=== PATIENT | male | born 1960 | race Caucasian/White ===

== ENCOUNTER 2024-06-10 05:31 | Day surgery (SDC) | payer BC ==
[2024-06-10] MEDS: NA CHLORIDE 0.9% 1,000 ML ONE ×2 (06:20→10:57)
[2024-06-10 06:53] LABS: Absolute Eosinophils 0.2 K/uL (0-0.5); Absolute Lymphocytes (CBC) 1.5 K/uL (0.7-4.9); Absolute Monocytes 0.6 K/uL (0.1-1.3); Absolute Neutrophil 5.3 K/uL (1.8-8.0); Basophils % 0.6 % (0-1.3); Eosinophils % 3.2 % (0-4.4); Hematocrit 36.7 % (39.6-49.0); Hemoglobin 12.8 g/dL (13.6-17.9); Lymphocytes % 19.4 % (15.3-44.8); MCH 29.7 pg (27.0-35.0); MCV 84.8 fL (80-100); MPV 8.6 fL (7.6-11.3); Monocytes % 8.4 % (3.3-12.3); Neutrophils % 68.4 % (41.7-73.7); Platelets 284 thou/uL (152-406); RBC Red Blood Cell Count 4.33 M/uL (4.33-5.43); Red Cell Distribution Width 13.3 % (12.1-15.2)
[2024-06-10] MEDS ORDERED: OXYMETAZOLINE HCL 0.05% 15ML NAS ONE (07:01)
[2024-06-10] MEDS ORDERED: EPINEPHRINE 1 MG/ML VIAL ONE (07:01)
[2024-06-10] MEDS ORDERED: FENTANYL CITR 100 MCG/2 ML ONE (07:02)
[2024-06-10] MEDS ORDERED: propofoL 200 MG/20 ML VIAL IV ONE (07:02)
[2024-06-10] MEDS ORDERED: MIDAZOLAM HCL 2 MG/2 ML INJ ONE (07:02)
[2024-06-10] MEDS ORDERED: LIDOCAINE 1% MPF 5 ML VIAL ONE (07:02)
[2024-06-10] MEDS ORDERED: ROCURONIUM 50 MG/5 ML VIAL IV ONE (07:02)
[2024-06-10] MEDS ORDERED: ONDANSETRON 4 MG/2 ML VIAL ONE (07:02)
[2024-06-10 07:14] LABS: Anion Gap 9.7 mEq/L (5.0-15.0); Potassium 3.7 mEq/L (3.5-5.1)
[2024-06-10] MEDS: CEFAZOLIN SODIUM 2 GM/VIAL ONE (07:57)
[2024-06-10] MEDS ORDERED: dexAMETHasone 10 MG/ML VIAL ONE (08:04)
[2024-06-10] MEDS: LIDOCAINE HCL/EPINEPHRINE 20 ML MDV ONE (08:07)
[2024-06-10] MEDS ORDERED: EPHEDRINE SULF 50 MG/ML VIAL ONE (08:21)
[2024-06-10] MEDS ORDERED: OFLOXACIN OPH 0.3%-5 ML BTL ONE (10:47)
[2024-06-10] MEDS ORDERED: BACITRACIN OINTMENT 14 GM TUBE TOP ONE (12:09)
[2024-06-10 14:51] VITALS: BP 139/75; TEMP 97.4; O2SAT 98
--- NOTE | 2024-06-11 13:38 | EKG ---
Test Date: 2024-06-10 Test Time: 07:11:11 Wildlife Biology Technician: NASEEM MEASUREMENT RESULTS: Intervals: Rate: 76 ID: [id number] QRSD: 102 QT: 410 QTc: 461 [place]: P: 70 ID: [id number] QRS: 70 T: 61 INTERPRETIVE STATEMENTS: Normal sinus rhythm Normal ECG Compared to ECG 02/20/2006 15:05:22 No significant changes Electronically Signed On 06-11-24 13:36:34 INFORMATION SYSTEMS SECURITY MANAGER by Travis Evans
--- NOTE | 2024-06-14 23:47 | OP ---
Date of Procedure: 06/10/2024 Surgeon: KUMAR ALMONTE Primary Care Physician: Unknown. 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 Procedures: 1. Right ear and oral meatoplasty. 2. Right ear canal plasty. 3. Facial nerve monitoring with [employer] nerve monitoring system. 4. Full-thickness skin graft from right supraclavicular neck. 5. Kerecis fish skin graft substitute, two packages used to cover bony EAC. Anesthesia: General endotracheal anesthesia was administered. I also infiltrated approximately 4 to 6 mL of 1% lidocaine with 1:100,000 epinephrine into the right ear canal at the bony cartilaginous junction and right supraclavicular neck. Estimated Blood Loss: Less than 5 mL. Specimens: None. Findings: Very stenotic right cartilaginous and bony ear canal with cerumen impaction and impacted eczematous skin. Stenosis was approximately 2.5 to 3 mm. Friable skin graft that was previously placed by another surgeon. Complications: None. Disposition: Stable. The patient tolerated the procedure well. 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 For approximately 20 years, he has been having frequent buildup of cerumen and eczematous skin, and he has been unable to clean with various instruments. He also noticed significant hearing loss in the right ear. Upon exam in my office, the patient had very stenotic ear canal involving at least the cartilage, but possibly the bony ear canal as well, and I was unable to clean out his ears secondary to stenosis. These were indications to bring the patient to operative suite for the above-mentioned procedure. He understood. All questions were answered. Risks versus benefits and complications were explained in detail. Consent form was signed, which was placed in the chart. Description Of Procedure: The patient was transferred from the preoperative holding area to the operative suite by Department of Anesthesia, placed on the operating table supine, sedated and intubated in normal fashion. A Zeiss microscope with auto-focus/zoom lens was utilized throughout the procedure. The orbicularis oculi probe and the orbicularis ramona probe from the facial nerve monitor were connected to the patient's skin as well as grounding electrodes, and these were calibrated to the monitor and found to be working accurately. I infiltrated approximately 4 to 5 mL of 1% lidocaine with 1:100,000 epinephrine at the bony cartilaginous junction of the right external auditory canal, and the patient was sterilely prepped and draped. My attention was first placed to cleaning of the right ear canal. I used various instrumentation, including wire loop and curette to clean out the right external auditory canal under direct visualization with the microscope. A 3 mm ear speculum was utilized and inserted into the right ear canal, and a large amount of ceruminous debris and eczematous skin were removed from the right ear canal. Once cleaned, I was able to examine the eardrum, which was intact. Ossicles were intact with no visualized abnormalities. No evidence of perforation or middle ear effusion. At this point, I determined that the patient not only had cartilaginous stenosis, but also bony stenosis and would likely need a canalplasty with drilling down of the bone. I made a large incision from the right helical juliano and across the morena cartilage extending down to the intertragal notch. The skin was elevated and a lot of the skin was most likely the skin graft that was placed previously. The skin was very friable and some of it tore apart. I was able to remove a large piece of chondral cartilage and subcutaneous tissue down to the level of the bony canal. I then made an incision at the 12 o'clock and 6 o'clock positions to connect to the incision that was made initially, thereby creating an advancement flap; however, the skin was so taut that I was unable to advance it laterally enough to open up the ear canal. I also noticed that the patient was going to need a drilling done of the lateral bony canal in order to open up the canal adequately. Thus, I connected a near surgical drill with a 4-0 max summer, and I drilled down the lateral canal and I extended the drilling medially. 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 Then, I also had to drill anteriorly to open up the bony canal as well. This was done after elevating the skin medially. Once drilling was complete, I noted at this point that the skin could not be reapproximated primarily secondary to friability of the skin. Thus, I elected to line the bony canal with two packages of Kerecis fish skin substitute. I then removed a full-thickness skin graft from the right supraclavicular neck in order to have adequate coverage of the bony canal over the fish skin substitute. I infiltrated additional 4 to 5 mL of 1% lidocaine with 1:100,000 epinephrine at the right supraclavicular neck skin and then I made an elliptical incision after measuring the amount of skin that I would need to cover the bony canal. This skin graft measured approximately 4.0 x 2.5 cm. Once the skin graft was removed though, it shrunk to approximately 3.8 x 2.2 cm. I then draped the skin over the anterior, posterior, superior part of the canal, in which the prior skin graft was removed. I then sutured it into place with the existing skin utilizing 4-0 Prolene suture and 5-0 monocryl suture in a simple interrupted fashion. I then reapproximated the initial incision with 5-0 Monocryl suture in a simple interrupted fashion. A stent was placed into the external auditory canal in order to keep the meatus open, and this was sutured into place with 4-0 nylon suture in a simple interrupted fashion. I placed a petroleum gauze into the morena bowl, and the facial nerve electrodes were removed. The patient tolerated the procedure well. He was transferred back to Department of Anesthesia in stable condition, subsequently discharged home on antibiotic and analgesic medications, and will follow up in 1 week or sooner if needed. CLOETTE/BHAVANA Voice ID: [id number] Report ID: [id number] ANNELIESE
== END 2024-06-10 14:15 | disposition home or self-care (01) ==
LOC: OR 05:31
PROVIDERS: ATTEND Otolaryngology Facial Plastic Surgery
PROC: 0HB4XZZ Excision of Neck Skin, External Approach (ICD-10-PCS; 2024-06-10)
PROC: XHRPXF7 Replacement of Skin with Bioengineered Allogeneic Construct, External Approach, New Technology Group 7 (ICD-10-PCS; 2024-06-10)
PROC: 09C37ZZ Extirpation of Matter from Right External Auditory Canal, Via Natural or Artificial Opening (ICD-10-PCS; 2024-06-10)
PROC: 09U Ear, Nose, Sinus, Supplement (ICD-10-PCS; principal; 2024-06-10 07:30)
DX: H95 Intraoperative and postprocedural complications and disorders of ear and mastoid process, not elsewhere classified (principal); H61.21 Impacted cerumen, right ear
CPT/HCPCS: 69310; 15260; 15004; 15275; 69210; 93005; 85025; 80048; 36415; 82947; J2704; J2003; J2250; J3010; J1100; J0171; J2405; J7030 ×2